=== PATIENT | male | born 1945 | race Caucasian/White ===

== ENCOUNTER → 2018-05-26 12:53 | Outpatient (CLI) | payer MEDICARE, SELFPAY ==
[2018-05-26 13:17] LABS: AST(SGOT) 27 U/L (15-37); Alanine Aminotransfer ALT/SGPT 42 U/L (16-61); Albumin, Serum 3.6 g/dL (3.2-5.0); Alkaline Phosphatase 78 U/L (45-117); Anion Gap 6 (5-15); BUN 24 mg/dL (7-18); BUN/Creat Ratio 26.2 RATIO (10-20); Calcium,Total 8.9 mg/dL (8.5-10.1); Chloride 106 mmol/L (98-107); Cholesterol 175 mg/dL (200); Creatinine, Serum 0.92 mg/dL (0.70-1.30); EST Glomerular Filtration Rate 87 mL/min (>60); Est Glom Filt Rate - Afr Amer 105 mL/min (>60); Globulin 3.5 g/dL (2.2-4.2); Glucose 89 mg/dL (74-106); High Density Lipoprotein 60 mg/dL; Potassium 4.2 mmol/L (3.5-5.1); Protein, Total 7.1 g/dL (6.4-8.2); Sodium Level 141 mmol/L (136-145); Triglycerides 80 mg/dL; Very Low Density Lipoprotein 16 mg/dL (5-40)
== END ==
PROVIDERS: Family Provider Family Medicine; PCP Family Medicine; Visit Provider Family Medicine
DX: I10 Essential (primary) hypertension (principal); E78.5 Hyperlipidemia, unspecified; R73.09 Other abnormal glucose
CPT/HCPCS: 80053; 80061; 83036

== ENCOUNTER 2018-11-12 07:45 | Day surgery (SDC) | payer MEDICARE, SELFPAY ==
--- NOTE | 2018-11-06 09:36 | EKG12_ITS ---
Test Reason : PRE-OP Blood Pressure : / mmHG Vent. Rate : 078 BPM Atrial Rate : 078 BPM P-R Int : 192 ms QRS Dur : 106 ms QT Int : 364 ms P-R-T Axes : 036 007 024 degrees QTc Int : 414 ms Normal sinus rhythm Inferior infarct , age undetermined Abnormal ECG Confirmed by ISELA MCDANIELS, MIKE ([id number]), acquisitions editor KAMILLE BLANCA ([id number]) on 11/09/2018 7:36:07 AM Referred By: Arnoldo Erazo Confirmed By:MIKE WEISS MD
[2018-11-06 10:02] LABS: Hematocrit 45.1 % (40-54); Hemoglobin 15.6 g/dl (13.0-16.5); Mean Corp Hgb Conc 34.6 g/gl (32-36); Mean Corpuscular Hgb 33.6 pg (27.0-32.0); Mean Corpuscular Volume 97.2 fL (80-94); Mean Platelet Vol. 9.4 fl (6.2-12.0); Platelet Count 235 K/mm3 (150-450); RBC Distribution Width CV 12.7 % (11.6-14.6); RBC Distribution Width SD 44.9 fl (35.1-43.9); Red Blood Count 4.64 M/mm3 (4.6-6.2); White Blood Count 6.5 K/mm3 (4.4-11.0)
[2018-11-06 10:03] LABS: Scan Indicated on CBC? Y/N NO
[2018-11-06 10:55] LABS: Anion Gap 10 (5-15); BUN 20 mg/dL (7-18); BUN/Creat Ratio 19.2 RATIO (10-20); Calcium,Total 9.2 mg/dL (8.5-10.1); Chloride 105 mmol/L (98-107); Creatinine, Serum 1.04 mg/dL (0.70-1.30); EST Glomerular Filtration Rate 75 mL/min (>60); Est Glom Filt Rate - Afr Amer 90 mL/min (>60); Glucose 102 mg/dL (74-106); Potassium 3.8 mmol/L (3.5-5.1); Sodium Level 141 mmol/L (136-145)
[2018-11-12 08:14] VITALS: BP 137/84; PULSE 85; RESP 18; TEMP 36.6; O2SAT 93; BMI 36.5
[2018-11-12] MEDS: Cefazolin 2 GM in 0.9% Normal Saline 100 ML IV (09:03)
[2018-11-12] MEDS: Bupiv/Epi 0.5% Mpf 30 ML Vial (09:39)
--- NOTE | 2018-11-12 09:54 | PCM.IMDPSTOP ---
Immediate Post-Op Note Date of Procedure: 11/12/18 Primary Surgeon/Physician: Arnoldo Erazo, DO obstetrics nurse practitioner: none Pre-Operative Diagnosis: Internal derangement left knee Post-Operative Diagnosis: MMT, LMT, Grade 3 chondromalacia MFC, Grade 3 and 4 chondromalacia LFC, Grade 3 chondromalacia PFJ Surgery/Procedure Performed:: Diagnostic and Operaative arthroscopy left knee Description of Surgical Findings:: see op note Estimated Blood Loss: minimal Specimen's removed: none Type of Anesthesia:: General ASA Class: ASA3 Severe Disease - Admit VTE Documentation VTE Present on Admission: No VTE Mechan Device Prophylaxis: SCD's, Thigh High RADHA Hose VTE Pharm Prophylaxis ordered?: No Reason prophylaxis not ordered:: Treatment Not Indicated
--- NOTE | 2018-11-12 09:58 | OP.PN_ITS ---
Immediate Post-Op Note Date of Procedure: 11/12/18 Primary Surgeon/Physician: Arnoldo Erazo, DO agency sales director: none Pre-Operative Diagnosis: Internal derangement left knee Post-Operative Diagnosis: MMT, LMT, Grade 3 chondromalacia MFC, Grade 3 and 4 chondromalacia LFC, Grade 3 chondromalacia PFJ Surgery/Procedure Performed:: Diagnostic and Operaative arthroscopy left knee Description of Surgical Findings:: see op note Estimated Blood Loss: minimal Specimen's removed: none Type of Anesthesia:: General ASA Class: ASA3 Severe Disease - Admit VTE Documentation VTE Present on Admission: No VTE Mechan Device Prophylaxis: SCD's, Thigh High RADHA Hose VTE Pharm Prophylaxis ordered?: No Reason prophylaxis not ordered:: Treatment Not Indicated
[2018-11-12 10:02] VITALS: BP 137/84; BP 151/76; PULSE 82; RESP 16; TEMP 36.6; O2SAT 97
--- NOTE | 2018-11-12 10:11 | OP.PCM_ITS ---
Operative Report Date of Procedure: 11/12/18 Primary Surgeon/Physician: Arnoldo Erazo corporate controller: none corporate controller: Pre-Operative Diagnosis: Medial and Lateral meniscus tears and OA left knee Post-Operative Diagnosis: same Surgery/Procedure Performed: Diagnostic and Operative arthroscopy with partial medial and lateral meniscectomies and chondroplasties of the MFC, LFC and PFJ Estimated Blood Loss: minimal Specimen's Removed: none Type of Anesthesia: general ASA Class: 3 Indications: [ ] Patient has failed conservative measures and at this point has elected to undergo the above procedure. Procedure Description: The patient was greeted in the preoperative area. The [left ] knee was marked with surgical marker. Preoperative antibiotics were administered. The patient was then taken to the operating suite and placed in a supine position on operating room table. After adequate anesthesia was obtained and airway was secured a well-padded tourniquet was placed on patient's affected extremity. Leg was then prepped and draped in usual sterile fashion. Surgical timeout was performed and confirmed with all present and surgery was commenced. Standard anteromedial anterolateral portals were made and a 30? arthroscope was then inserted into the knee. [ ]. The patellofemoral joint showed diffuse grade 2 bordering on grade 3 chondromalacia of the patella and trochlear groove. The lateral femoral condyle close to the patellofemoral joint displayed grade 4 chondromalacia. The medial compartment was entered. There was noted to be a macerated, multilayered tear of the medial meniscus with associated grade 3 chondromalacia, The ACL and PCL were probed and intact. The lateral compartment showed an inner 1/3 tear of the lateral meniscus with associated grade 3 chondromalacia. A combination of straight and angled punches were used to perform a partial medial meniscectomy. The meniscal fragments were removed with a shaver and the remainder of the meniscus was smoothed to a firm and stable rim. The shaver was then used to perform a chondroplasty on the medial femoral condyle. The lateral compartment was entered and similarly a partial lateral meniscectomy and chondroplasty were performed. A chondroplasty was then performed on the patellofemoral joint. At this point all instruments were removed. Arthroscopic portals were closed in a standard fashion. 30 cc of 0.5% Marcaine was then injected into the knee. Well-padded nonadherent dressing was applied and secured with an Tanner wrap. Tourniquet was deflated and patient was taken to the recovery room in stable condition.
[2018-11-12 10:15] VITALS: BP 137/84; BP 150/72; PULSE 78; RESP 16; O2SAT 95
[2018-11-12 10:29] VITALS: BP 134/79; BP 137/84; PULSE 74; RESP 16; TEMP 36.8; O2SAT 97
[2018-11-12] MEDS: HYDROcodone Bitartrate/Apap 5/325 Tablet PO (10:40)
[2018-11-12 11:30] VITALS: BP 137/84
== END 2018-11-12 11:30 | disposition home or self-care (01) ==
LOC: SDC 07:46 → AC 07:48
PROVIDERS: Physician Assistant; Family Provider Family Medicine; PCP Family Medicine; Referring Provider Orthopaedic Surgery; Visit Provider Orthopaedic Surgery
PROC: (CPT 29870; principal; 2018-11-12 08:55)
DX: M17.12 Unilateral primary osteoarthritis, left knee (principal); S83.282A Other tear of lateral meniscus, current injury, left knee, initial encounter; S83.242A Other tear of medial meniscus, current injury, left knee, initial encounter; I10 Essential (primary) hypertension; E78.00 Pure hypercholesterolemia, unspecified; Z86.73 Personal history of transient ischemic attack (TIA), and cerebral infarction without residual deficits; X58.XXXA Exposure to other specified factors, initial encounter; Z79.891 Long term (current) use of opiate analgesic; Z79.899 Other long term (current) drug therapy; Y93.89 Activity, other specified; Y92.89 Other specified places as the place of occurrence of the external cause; Y99.8 Other external cause status
CPT/HCPCS: 01400; 29880; 36415; 80048; 85027; 93005; J7120; J2405

== ENCOUNTER → 2018-12-01 12:02 | Outpatient (CLI) | payer MEDICARE, SELFPAY ==
[2018-11-12 08:14] VITALS: BMI 36.5
[2018-12-01 13:03] LABS: ALB/GLOB Ratio 1.1 RATIO (0.9-2.4); AST(SGOT) 20 U/L (15-37); Alanine Aminotransfer ALT/SGPT 36 U/L (16-61); Albumin, Serum 3.8 g/dL (3.2-5.0); Alkaline Phosphatase 68 U/L (45-117); Anion Gap 8 (5-15); BUN 24 mg/dL (7-18); Calcium,Total 8.7 mg/dL (8.5-10.1); Chloride 105 mmol/L (98-107); Cholesterol 186 mg/dL (200); Creatinine, Serum 0.92 mg/dL (0.70-1.30); EST Glomerular Filtration Rate 86 mL/min (>60); Est Glom Filt Rate - Afr Amer 104 mL/min (>60); Globulin 3.5 g/dL (2.2-4.2); Glucose 97 mg/dL (74-106); High Density Lipoprotein 57 mg/dL; Protein, Total 7.3 g/dL (6.4-8.2); Sodium Level 140 mmol/L (136-145); Triglycerides 98 mg/dL; Very Low Density Lipoprotein 20 mg/dL (5-40)
[2018-12-01 13:07] LABS: Hemoglobin A1c 5.5 % (4.2-6.3)
[2018-12-01 13:26] LABS: Microalbumin,Random Urine 9.8 mg/L (NO RANGE EST.); Microalbumin:Creatinine Ratio 4.4 mg/g CRE (<30 mg/g CRE)
== END ==
PROVIDERS: Family Provider Family Medicine; PCP Family Medicine; Referring Provider Family Medicine; Visit Provider Family Medicine
DX: E78.5 Hyperlipidemia, unspecified (principal); Z79.899 Other long term (current) drug therapy
CPT/HCPCS: 80053; 80061; 82043; 82570; 83036

== ENCOUNTER → 2019-05-31 | Outpatient (CLI) | payer MEDICARE, SELFPAY ==
[2019-05-31 10:47] LABS: AST(SGOT) 22 U/L (15-37); Alanine Aminotransfer ALT/SGPT 31 U/L (16-61); Albumin, Serum 3.6 g/dL (3.2-5.0); Alkaline Phosphatase 82 U/L (45-117); Anion Gap 2 (5-15); BUN 25 mg/dL (7-18); Calcium,Total 8.9 mg/dL (8.5-10.1); Chloride 105 mmol/L (98-107); Cholesterol 184 mg/dL (200); Creatinine, Serum 0.83 mg/dL (0.70-1.30); EST Glomerular Filtration Rate 96 mL/min (>60); Est Glom Filt Rate - Afr Amer 117 mL/min (>60); Globulin 3.5 g/dL (2.2-4.2); Glucose 101 mg/dL (74-106); High Density Lipoprotein 75 mg/dL; Potassium 4.1 mmol/L (3.5-5.1); Protein, Total 7.1 g/dL (6.4-8.2); Sodium Level 137 mmol/L (136-145); Triglycerides 92 mg/dL; Very Low Density Lipoprotein 18 mg/dL (5-40)
== END | disposition home or self-care (01) ==
LOC: LABSPEC 10:24
PROVIDERS: Family Provider Family Medicine; PCP Family Medicine; Referring Provider Family Medicine; Visit Provider Family Medicine
DX: E78.5 Hyperlipidemia, unspecified (principal)
CPT/HCPCS: 80053; 80061

== ENCOUNTER → 2019-11-29 13:21 | Outpatient (CLI) | payer MEDICARE, SELFPAY ==
[2019-11-29 14:39] LABS: ALB/GLOB Ratio 0.9 RATIO (0.9-2.4); AST(SGOT) 20 U/L (15-37); Alanine Aminotransfer ALT/SGPT 31 U/L (16-61); Albumin, Serum 3.5 g/dL (3.2-5.0); Alkaline Phosphatase 72 U/L (45-117); Anion Gap 2 (5-15); BUN 20 mg/dL (7-18); BUN/Creat Ratio 22.3 RATIO (10-20); Calcium,Total 8.8 mg/dL (8.5-10.1); Chloride 105 mmol/L (98-107); Cholesterol 185 mg/dL (200); EST Glomerular Filtration Rate 88 mL/min (>60); Est Glom Filt Rate - Afr Amer 107 mL/min (>60); Globulin 3.7 g/dL (2.2-4.2); Glucose 83 mg/dL (74-106); High Density Lipoprotein 60 mg/dL; Potassium 4.1 mmol/L (3.5-5.1); Protein, Total 7.2 g/dL (6.4-8.2); Sodium Level 138 mmol/L (136-145); Triglycerides 68 mg/dL; Very Low Density Lipoprotein 14 mg/dL (5-40)
== END ==
PROVIDERS: Family Provider Family Medicine; PCP Family Medicine; Referring Provider Family Medicine; Visit Provider Family Medicine
DX: I10 Essential (primary) hypertension (principal); R73.09 Other abnormal glucose; E78.5 Hyperlipidemia, unspecified
CPT/HCPCS: 80053; 80061

== ENCOUNTER 2020-05-31 05:08 | Inpatient (IN) | payer MEDICARE, SELFPAY ==
[2020-05-31] VITALS (7 sets, daily range): BP systolic 128–174; BP diastolic 75–85; PULSE 62–92; RESP 14–19; TEMP 36.4–37.1; O2SAT 92–99; BMI 29.9; BMI 32.8; BMI 32.9
--- NOTE | 2020-05-31 05:18 | CT_ITS ---
STUDY: CT BRAIN WITHOUT CONTRAST REASON FOR EXAM: Male, 75 years old. MEMORY LOSS,REPEATING THINGS,DOESN''T FEEL RIGHT -- HX:HLD,HTN,TRANSIENT GLOBAL AMNESIA-3 YRSAGO RADIATION DOSAGE (If Supplied By Facility): CTDIvol = ( 44.99 ) mGy, DLP = ( 846.73 ) mGycm TECHNIQUE: Transaxial CT imaging of the brain was performed without administration of intravenous contrast material. Individualized dose optimization techniques were used for this CT. COMPARISON: No relevant priors. FINDINGS: Normal soft tissue structures. Normal calvarium. There is mild cerebral atrophy with widening of the extra-axial spaces and ventricular dilatation. There are areas of decreased attenuation within the white matter tracts of the supratentorial brain, consistent with microvascular disease changes. There is a vague suggestion of low attenuation within the basal ganglia/thalamic regions which may represent prior ischemic change. Normal brainstem. There is mild cerebellar atrophy. There is no intracranial hemorrhage. There are no findings of an acute ischemic infarction. There is right greater than left chronic appearing maxillary sinusitis. There is ethmoid sinus mucosal thickening mild frontal sinusitis. Minimal sphenoid. CT/Brain/Head without Contrast IMPRESSION: Sinusitis. Atrophy no evidence of acute hemorrhage infarct or edema. Electronically Signed: Alessandra Persaud MD at 5:46 EDT Tel , Service support ,
--- NOTE | 2020-05-31 05:18 | EKG12_ITS ---
Test Reason : NEURO Blood Pressure : / mmHG Vent. Rate : 082 BPM Atrial Rate : 082 BPM P-R Int : 194 ms QRS Dur : 102 ms QT Int : 362 ms P-R-T Axes : 053 037 042 degrees QTc Int : 422 ms Normal sinus rhythm Normal ECG Confirmed by ISELA MCDANIELS, MIKE ([id number]), business editor EMANUEL MELARA ([id number]) on 06/01/2020 1:15:43 PM Referred By: SARAH Confirmed By:MIKE WEISS MD
--- NOTE | 2020-05-31 05:20 | ED.DCSUM_ITS ---
History of Present Illness Chief Complaint: Neuro S/Sx Informant: Patient, Family Onset: Today Narrative: Patient presents with this morning secondary to confusion and memory loss. Patient got up early this morning and states his memory was not right. He is repeatedly asking his questions. He denies pain. 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 Patient at that time also had slurred speech. Stroke work-up at that point was read as evidence of a stroke, but neurologist thought it was an overcall and there was no actual stroke. Patient has not had problems in the interval time period. 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 Past Medical History - Allergies and Home Meds Allergies/Adverse Reactions: Allergies No Known Allergies Allergy (Verified 05/31/20 05:19) Primary Care Physician: Demian Quintanilla MD [Primary Care Provider] - Prior records reviewed: Yes Surgical History: - - cataract Lives: Spouse/ Significant Other Smoking Status: Never smoker - Family History Paternal Family History: Reports: - Review of Systems General: Denies: Chills, Fever Eyes: Denies: Visual changes - bilaterally ENT: Denies: Bilateral ear pain Cardiovascular: Denies: Chest pain Respiratory: Denies: Dyspnea, Cough Gastrointestinal: Denies: Abdominal pain, Nausea, Vomiting, Diarrhea Musculoskeletal: Denies: Extremity Pain Skin: Denies: Rash Neurological: Denies: Headache, Weakness, Parasthesia Endocrine: Reports: Polydipsia Hematologic: Denies: Easy bruising, Easy bleeding Allergy: Denies: Uticaria Physical Exam Vital Signs/Narrative: Vital Signs Temp Pulse Resp BP Pulse Ox 05/31/20 05:10 97.6 F L 92 15 168/79 H 97 Inital Vital Signs reviewed: Yes General: Well nourished, Well developed Head: Normocephalic Eyes: Perrl, EOMI ENT: Moist mucous membranes Neck: Supple Cardiovascular: Regular rate, Regular rhythm Respiratory: No distress, CTA bilaterally Abdomen: Soft, Nontender Extremities: Nontender Skin: Normal color Neurological: Alert, Oriented x3, Normal Strength, Normal Sensation, - - NIH equals 0 Psychological: Normal affect Diagnostic/Tx/Re-eval Impressions Brain CT 07/08/20 05:18 IMPRESSION: Sinusitis. Atrophy no evidence of acute hemorrhage infarct or edema. Electronically Signed: Alessandra Persaud MD at 5:46 EDT Tel , Service support , 05/31/20 05:18 Brain/Head without Contrast [CT] Stat Laboratory Results 05/31/20 05/31/20 05/31/20 05:15 05:15 05:15 WBC 6.1 RBC 4.41 L Hgb 14.6 Hct 44.1 MCV 100.0 H MCH 33.1 H MCHC 33.1 RDW Std Deviation 45.9 H RDW Coeff of Nilo 12.3 Plt Count 213 MPV 9.1 Immature Gran % (Auto) 0.200 Neut % (Auto) 42.2 L Lymph % (Auto) 42.6 H [place] % (Auto) 8.4 Eos % (Auto) 5.9 H Baso % (Auto) 0.7 Absolute Neuts (auto) 2.6 Absolute Lymphs (auto) 2.58 Nucleated RBC % 0 PT 11.7 INR 0.9 APTT 28.4 Sodium 139 Potassium 3.6 Chloride 102 Carbon Dioxide 28.0 Anion Gap 9 BUN 19 H Creatinine 0.88 Estim Creat Clear Calc 79.63 Est GFR (MDRD) Af Amer 109 Est GFR (MDRD) Non-Af 90 BUN/Creatinine Ratio 21.5 H Glucose 113 H Calcium 8.9 Total Bilirubin 0.40 Direct Bilirubin 0.10 AST 22 ALT 33 Alkaline Phosphatase 92 Troponin I < 0.015 Total Protein 7.6 Albumin 3.8 Globulin 3.8 POC Glucose 05/31/20 05:18 WBC RBC Hgb Hct MCV MCH MCHC RDW Std Deviation RDW Coeff of Nilo Plt Count MPV Immature Gran % (Auto) Neut % (Auto) Lymph % (Auto) [place] % (Auto) Eos % (Auto) Baso % (Auto) Absolute Neuts (auto) Absolute Lymphs (auto) Nucleated RBC % PT INR APTT Sodium Potassium Chloride Carbon Dioxide Anion Gap BUN Creatinine Estim Creat Clear Calc Est GFR (MDRD) Af Amer Est GFR (MDRD) Non-Af BUN/Creatinine Ratio Glucose Calcium Total Bilirubin Direct Bilirubin AST ALT Alkaline Phosphatase Troponin I Total Protein Albumin Globulin POC Glucose 109 - EKG Initial EKG Interpretation: Sinus Rhythm - Sinus at 82 with no acute ischemia. - Medical Decision Making Test results are discussed with patient and at bedside. At this time his NIH score is technically 0. He does continue to perseverate and ask repeated questions. He does have insight to understand that something is not right. I have recommended observation for evaluation by neurology and further work-up. Family is aware that we do not have in-house neurology and this will be a virtual consult. I will speak with the hospitalist. ED Disposition - Plan for ED Patient: Disposition: Acute Care Hospital [facility] Diagnosis: Confusion, Amnesia Referrals: Demian Quintanilla MD [Primary Care Provider] -
[2020-05-31 05:25] LABS: Absolute Lymphocyte Count 2.58 X10^3/uL (0.83-4.51); Absolute Neutrophil Count 2.6 X10^3/uL (2.0-7.7); Basophil# 0.04 X10^3/uL; Basophil% 0.7 % (0-1); Eosinophil# 0.36 X10^3/uL; Eosinophils% 5.9 % (0-5); Hematocrit 44.1 % (40-54); Hemoglobin 14.6 g/dL (13.0-16.5); Lymphocyte # 2.58 X10^3/ul (4.0); Lymphocyte % 42.6 % (19-41); Mean Corp Hgb Conc 33.1 g/dL (32-36); Mean Corpuscular Hgb 33.1 pg (27.0-32.0); Mean Platelet Vol. 9.1 fl (6.2-12.0); Monocyte# 0.51 X10^3/uL; Monocyte% 8.4 % (0-10); NRBC Flagged by Analyzer 0 % (0-5); Neutrophil # 2.56 X10^3/uL (2.7-7.7); Neutrophil % 42.2 % (47-70); Platelet Count 213 K/mm3 (150-450); RBC Distribution Width CV 12.3 % (11.6-14.6); RBC Distribution Width SD 45.9 fl (35.1-43.9); Red Blood Count 4.41 M/mm3 (4.6-6.2); White Blood Count 6.1 K/mm3 (4.4-11.0)
[2020-05-31 05:26] LABS: Bedside Glucose 109 mg/dL (70-110)
[2020-05-31 05:32] LABS: International Normalized Ratio 0.9; Prothrombin Time (Protime)PT. 11.7 SECONDS (11.7-14.9)
[2020-05-31 05:33] LABS: Partial Thromboplast Time 28.4 Seconds (24.1-36.2)
[2020-05-31] MEDS: 0.9% Normal Saline 1,000 ML 150 ML IV (05:35)
[2020-05-31 05:43] LABS: AST(SGOT) 22 U/L (15-37); Alanine Aminotransfer ALT/SGPT 33 U/L (16-61); Albumin, Serum 3.8 g/dL (3.2-5.0); Alkaline Phosphatase 92 U/L (45-117); Anion Gap 9 (5-15); BUN 19 mg/dL (7-18); BUN/Creat Ratio 21.5 RATIO (10-20); Calcium,Total 8.9 mg/dL (8.5-10.1); Chloride 102 mmol/L (98-107); Creatinine, Serum 0.88 mg/dL (0.70-1.30); EST Glomerular Filtration Rate 90 mL/min (>60); Est Glom Filt Rate - Afr Amer 109 mL/min (>60); Estimated Creatinine Clearance 79.63 ml/min; Globulin 3.8 g/dL (2.2-4.2); Glucose 113 mg/dL (74-106); Potassium 3.6 mmol/L (3.5-5.1); Protein, Total 7.6 g/dL (6.4-8.2); Sodium Level 139 mmol/L (136-145)
--- NOTE | 2020-05-31 06:13 | PCM.HP.STD ---
Problem List (1) TIA (transient ischemic attack) Status: Acute (2) HTN (hypertension) Status: Chronic Qualifiers: Hypertension type: essential hypertension Qualified Code(s): I10 - Essential (primary) hypertension (3) Hyperlipemia Status: Chronic Qualifiers: Hyperlipidemia type: unspecified Qualified Code(s): E78.5 - Hyperlipidemia, unspecified History of Present Illness Date of Admission: 05/31/20 Chief Complaint: Confusion, word finding difficulty, perservering - 1 day The patient is a 75 year old M with past medical history of hypertension, hyperlipidemia, previous CVA who was last known normal around 10 pm when he went to bed last night. He woke up around 4:40 AM and got out of bed and open the door to the bedroom and closed it. He repeated that again. He appeared confused and had difficulty finding words as well as asking what happened the day before, where is the dog, etc. She had a similar presentation 3 years ago where he had transient global amnesia with slurred speech. He was initially said to be a stroke but later on the neurologist said there was no actual stroke. At the time of being seen, patient admits to feeling better. His confusion appears to be clearing up. Vitals in the ED show temperature of 97.6F, heart rate 92, blood pressure 168/79, respiratory rate 15, SPO2 97% on room air. WBC count is 6.1, hemoglobin 14.6, platelet count 213, INR 0.9, APTT 28.4, CMP was unremarkable. CT scan of the brain showed atrophy without any acute abnormality. Past Medical History Past Medical History (Chronic Problems): Chronic Problems TGA (transient global amnesia) (Chronic) HTN (hypertension) (Chronic) Hyperlipemia (Chronic) Allergies No Known Allergies Allergy (Verified 05/31/20 05:19) Home Medications: Ambulatory Orders Medication Instructions Recorded Aspirin [Aspirin, Baby] 81 mg PO DAILY@0800 02/13/17 Lisinopril/Hydrochlorothiazide 1 tablet PO DAILY 02/13/17 [Zestoretic Tablet] Multivitamins,Ther W-Minerals 1 tablet PO DAILY 02/13/17 [Multivitamin With Minerals ([facility])] Acetaminophen [Tylenol Tablet] 650 mg PO Q4H PRN PRN #0 tablet 02/14/17 Lovastatin [Mevacor] 40 mg PO DAILY 11/06/18 Surgical History: cataract Psychiatric History: No pertinent psych hx Lives: Spouse/ Significant Other Smoking Status: Never smoker Tobacco Use: Non-smoker Alcohol: Occasional Drugs: None - *Family History Paternal History Items: Cancer Maternal History Items: Cancer Review of Systems Constitutional: Denies: Anorexia, Chills, Fever, Malaise, Weakness, Weight Change, Fatigue Eyes: Denies: Blurred vision, Cataracts, Conjunctivae Inflammation, Pain, Redness, Vision Change HEENT: Denies: Difficulty Hearing, Difficulty Swallowing, Head Aches, Hearing Changes, Sinus Congestion, Sinus Drainage Cardiovascular: Denies: Chest Pain, Claudication, Orthopnea, Palpitations Respiratory: Denies: Cough, Hemoptysis, Shortness of breath at rest, Shortness of breath upon exertion, Sputum production Gastrointestinal: Denies: Abdominal Pain, Constipation, Hematemesis, Hematochezia, Nausea, Vomiting Genitourinary: Denies: Dysuria, Frequency Musculoskeletal: Denies: Joint Pain, Joint stiffness, Joint Tenderness Skin: Denies: Rash, Wounds Neurological: Denies: Numbness, Tingling, Focal weakness Psychiatric: Denies: Anxiety, Depression, Homicidal Ideations, Suicidal Ideations Hematologic/ Lymphatic: Denies: Easy Bruising, Easy Bleeding VTE Information - Inpt Only VTE Present on Admission: No VTE Pharm Prophylaxis ordered?: Yes Patient Problems: Active and Suspected Problems Confusion (Acute) Amnesia (Acute) TIA (transient ischemic attack) (Acute) - Physical Exam Vitals/I&O's: Vital Signs Temp Pulse Resp BP Pulse Ox 97.6 F L 92 15 168/79 H 97 05/31/20 05:10 05/31/20 05:10 05/31/20 05:10 05/31/20 05:10 05/31/20 05:10 Oxygen Delivery Method Room Air Weight: 97.6 kg Body Mass Index (BMI) 29.9 Finger Stick Blood Glucose 109 General: Alert, Oriented x3, Cooperative, No apparent distress HEENT: Atraumatic, PERRLA, EOMI, Normocephalic Oral: Moist Mucosa Neck: Supple Lungs: Clear to auscultation, Normal air movement Cardiovascular: Regular rate, Regular Rhythm, Normal S1, Normal S2, No murmurs Abdomen: Bowel Sounds Present, Soft, Non Tender, Non-Distended, No Hepato-splenomegaly Extremities: No edema Skin: No rashes, No breakdown Musculoskeletal: No Tenderness to Palpation of Joints or Extremities Lymphatic: No Cervical, Supraclavicular, or Inguinal Adenopathy Neurological: Cranial nerves II-XII grossly intact, Neuro grossly intact Psych/Mental Status: Normal Affect, Appropriate Laboratory Results 05/31/20 05:15: WBC 6.1, RBC 4.41 L, Hgb 14.6, Hct 44.1, MCV 100.0 H, MCH 33.1 H, MCHC 33.1, RDW Std Deviation 45.9 H, RDW Coeff of Nilo 12.3, Plt Count 213, MPV 9.1, Immature Gran % (Auto) 0.200, Neut % (Auto) 42.2 L, Lymph % (Auto) 42.6 H, [place] % (Auto) 8.4, Eos % (Auto) 5.9 H, Baso % (Auto) 0.7, Absolute Neuts (auto) 2.6, Absolute Lymphs (auto) 2.58, Nucleated RBC % 0 05/31/20 05:15: PT 11.7, INR 0.9, APTT 28.4 05/31/20 05:15: Sodium 139, Potassium 3.6, Chloride 102, Carbon Dioxide 28.0, Anion Gap 9, BUN 19 H, Creatinine 0.88, Estim Creat Clear Calc 79.63, Est GFR (MDRD) Af Amer 109, Est GFR (MDRD) Non-Af 90, BUN/Creatinine Ratio 21.5 H, Glucose 113 H, Calcium 8.9, Total Bilirubin 0.40, Direct Bilirubin 0.10, AST 22, ALT 33, Alkaline Phosphatase 92, Troponin I < 0.015, Total Protein 7.6, Albumin 3.8, Globulin 3.8 05/31/20 05:18: POC Glucose 109 Current Medications Sodium Chloride () 1,000 mls @ 150 mls/hr IV .Q6H40M [facility] Last Admin: 05/31/20 05:35 Dose: 150 mls/hr Documented by: Assessment/Plan All Active Problems Confusion (Acute) Amnesia (Acute) TIA (transient ischemic attack) (Acute) 1. Acute confusion, word-finding difficulty likely related to acute TIA/stroke Patient's NIHSS at time of being examined is [address] scan of the brain shows atrophy, no acute intracranial abnormality Will admit for stroke work-up -MRI of the brain, MRA of the head, carotid ultrasound (unable to order MRA neck as system does not seem to allow entry) 2D echo, lipid profile, HbA1c 2. Hypertension, admitting blood pressures elevated Will hold home medication for now and allow for permissive hypertension We will resume home blood pressure medication if there is no stroke 3. Hyperlipidemia, on statin, lipid profile in the a.m. 4. DVT PPx- Heparin SC OBSV E&M: 18264 Initial observation care L3
--- NOTE | 2020-05-31 07:21 | MRI_ITS ---
STUDY: MRA OF THE HEAD WITHOUT CONTRAST REASON FOR EXAM: Male, 75 years old. neuro deficit, memory loss, amnesia,confusion TECHNIQUE: 3-D [id number] (TOF) imaging was performed with MIPs. The study was performed unenhanced. COMPARISON: None. FINDINGS: Normal bilateral petrous carotid arteries. Normal right cavernous carotid artery with a normal supraclinoid bifurcation. Normal left cavernous carotid artery with a normal supraclinoid bifurcation. There is hypoplastic development of the right A1 segment of the anterior cerebral arteries with an atretic but intact artery. Normal left A1 segments of the anterior cerebral artery. Normal intact anterior communicating artery (ACOM). Normal bilateral A2 segments of the anterior cerebral arteries. Normal right M1 and M2 segments of the middle cerebral arteries, with a normal M1 bifurcation. Normal left M1 and M2 segments of the middle cerebral arteries, with a normal M1 bifurcation. Normal right posterior communicating artery (PCOM). Normal left posterior communicating artery (PCOM). Normal bilateral vertebral arteries. Normal basilar artery with a normal basilar bifurcation. The visualized bilateral superior cerebellar (SCA) arteries are normal. Normal bilateral P1, P2 and visualized P3 segments of the posterior cerebral arteries. There is no demonstrated aneurysm of the [place]. There is no major vessel occlusion or hemodynamically significant stenosis. There is no demonstrated abnormality of the visualized brain. MRI/MRA Head ONLY without Contrast IMPRESSION: Normal MRA of the head Electronically Signed: Aries Raman MD at 12:35 EDT Tel , Service support ,
--- NOTE | 2020-05-31 07:21 | MRI_ITS ---
STUDY: MRI BRAIN WITHOUT CONTRAST REASON FOR EXAM: Male, 75 years old. neuro deficit, memory loss, amnesia,confurion TECHNIQUE: Standardized multiplanar fat and water weighted pulse sequences were obtained. COMPARISON: 02/13/2017 FINDINGS: There is mild cerebral atrophy with widening of the extra-axial spaces and ventricular dilatation. There are a limited number of small white matter hyperintensities, distributed throughout the deep white matter tracts of the cerebral hemispheres, consistent with mild chronic white matter ischemic changes. There is no evidence for recent intracranial ischemia or other cause of cytotoxic edema on diffusion weighted imaging (DWI). Normal T2* images of the brain without demonstrated susceptibility artifact. There is no demonstrated hemosiderin stain. Normal bilateral basal ganglia. Normal thalami. There is no extra-axial fluid accumulation. Normal flow voids within the major intracranial circulation suggesting patency by spin echo criteria. Normal sella turcica, pituitary gland, infundibular stalk, optic chiasm and hypothalamus. Normal tectal plate and pineal gland. Normal midbrain, altagracia and medulla. Normal cerebellum. Normal basal cisterns. Normal bilateral temporal bones. Normal bilateral internal auditory canals. There are bilateral ocular lens implants with otherwise normal intraorbital contents. There is mucoperiosteal inflammatory disease of the paranasal sinuses consistent with moderate chronic sinusitis. Normal calvarium and skull base. Normal visualized soft tissue structures. Normal visualized upper cervical spine. MRI/Brain without Contrast IMPRESSION: Involutional changes of the brain, as described above. No acute infarct. Electronically Signed: Aries Raman MD at 12:28 EDT Tel , Service support ,
--- NOTE | 2020-05-31 07:21 | ECHOD_ITS ---
Reason For Study: TIA/CVA Procedure This was a 2D Doppler, Color Flow transthoracic echocardiogram. Exam performed portable in patient room. Left Ventricle Normal size and thickness. The estimated ejection fraction is 65 %. Stage 1 diastolic dysfunction. No regional wall motion abnormalities noted. Right Ventricle Moderately dilated right ventricle. Normal systolic function. Atria Normal left atrium. Normal right atrium. Normal atrial septum. Bubble contrast study negative for right to left interatrial shunt. Mitral Valve The mitral valve is structurally normal. No prolapse or stenosis seen. Tricuspid Valve Normal tricuspid valve. Mild (1+) tricuspid valve insufficiency. Right ventricular systolic pressure estimated to be 37 mmHg. Mild pulmonary hypertension. Aortic Valve Trisinus/trileaflet aortic valve. Mild focal aortic valve thickening. There is no aortic stenosis. Pulmonic Valve Normal pulmonic valve. Great Vessels Normal aortic root. Normal arch. Normal inferior vena cava. Inferior vena cava collapse with sniff. Pericardium/Pleural No pericardial effusion. Medication Performed a rapid injection of agitated mix of 9 cc saline and 1cc air to assess for atrial septal defect. MMode/2D Measurements & Calculations LVIDd: 5.2 cm IVSd: 0.97 cm Ao root diam: 4.1 cm LVIDs: 3.4 cm LVPWd: 0.90 cm RVDd: 4.5 cm FS: 33.8 % LAV(MOD-bp): 44.9 ml LVAd ap4: 37.4 cm2 SV(MOD-sp4): 76.5 ml LAV(MOD-bp) Indexed: 20.6 ml/m2 EDV(MOD-sp4): 128.6 ml LAV(MOD-sp2): 50.4 ml EDV(sp4-el): 131.9 ml LAV(MOD-sp4): 39.7 ml LVAs ap4: 19.8 cm2 ESV(MOD-sp4): 52.1 ml ESV(sp4-el): 50.2 ml EF(MOD-sp4): 59.5 % EF(sp4-el): 62.0 % SV(sp4-el): 81.8 ml LA A4 area: 15.8 cm2 LA dimension(2D): 4.9 cm RA A4 area: 11.9 cm2 Time Measurements MV dec time: 0.19 sec Doppler Measurements & Calculations MV E max mj: 76.5 cm/sec Lat Peak E' Mj: 12.8 cm/sec Med Peak E' Mj: 6.7 cm/sec MV A max mj: 97.1 cm/sec E/E' lat: 6.0 E/E' med: 11.4 MV E/A: 0.79 Ao V2 max: 211.7 cm/sec LV V1 max: 107.5 cm/sec PA V2 max: 117.3 cm/sec Ao max P.9 mmHg LV V1 max P.6 mmHg Ao V2 mean: 143.5 cm/sec LV V1 mean P.7 mmHg Ao mean P.3 mmHg LV V1 mean: 78.1 cm/sec Ao V2 VTI: 41.2 cm LV V1 VTI: 22.0 cm TR max mj: 283.9 cm/sec TR max P.2 mmHg Interpretation Summary The estimated ejection fraction is 65 %. Stage 1 diastolic dysfunction. Moderately dilated right ventricle. Bubble contrast study negative for right to left interatrial shunt. Mild (1+) tricuspid valve insufficiency. Right ventricular systolic pressure estimated to be 37 mmHg. Mild pulmonary hypertension. There is no aortic stenosis. Compared to echo report dated 02/14/2017, LV function has remained the same and RV has increased from mild to moderate dilatation, RVSP is increased from 23 to 37 mmHg. Ordering Physician: Shirley Guaman Referring Physician: MINA CARRILLO Performed By: Brooke Castrejon, MARISOL, RVT
[2020-05-31 07:51] LABS: AST(SGOT) 21 U/L (15-37); Alanine Aminotransfer ALT/SGPT 31 U/L (16-61); Albumin, Serum 3.8 g/dL (3.2-5.0); Alkaline Phosphatase 93 U/L (45-117); Bilirubin, Direct 0.13 mg/dL (0.00-0.30); Globulin 3.7 g/dL (2.2-4.2); Protein, Total 7.5 g/dL (6.4-8.2); Thyroid Stim Hormone (TSH) 4.47 uIU/mL (0.358-3.74)
--- NOTE | 2020-05-31 08:01 | MRI_ITS ---
STUDY: MRA NECK WITHOUT CONTRAST REASON FOR EXAM: Male, 75 years old. neuro deficit, memory loss, amnesia,confusion TECHNIQUE: Source images were obtained, MIPs were performed. The study was performed unenhanced. COMPARISON: 02/13/2017 FINDINGS: RIGHT CAROTID ARTERIES: Normal right common carotid artery (CCA). There is moderate atherosclerotic plaque formation with moderate narrowing of the carotid bulb. There is moderate atherosclerotic plaque formation of the origin of the right internal carotid artery with an estimated stenosis of 50-69% stenosis. Normal visualized cervical portion of the right internal carotid artery. Normal origin of the right external carotid artery (ECA). LEFT CAROTID ARTERIES: Normal left common carotid artery (CCA). There is moderate atherosclerotic plaque formation with moderate narrowing of the carotid bulb. There is moderate atherosclerotic plaque formation of the origin of the left internal carotid artery with an estimated stenosis of 50-69% stenosis. Normal visualized cervical portion of the left internal carotid artery. Normal origin of the left external carotid artery (ECA). VERTEBRAL ARTERIES: Normal antegrade flow within the bilateral vertebral artery without a hemodynamically significant stenosis. MRI/MRA Neck without Contrast IMPRESSION: 1. Moderate (50%) right carotid stenosis. 2. Moderate (60%) stenosis left carotid stenosis. 3. Patent vertebral arteries bilaterally. Electronically Signed: Aries Raman MD at 12:37 EDT Tel , Service support ,
[2020-05-31] MEDS: LORazepam 2 MG/ML Syringe IV (09:06)
--- NOTE | 2020-05-31 10:39 | CASEMGMT ---
Pt is out of the dept for testing at this time. This RN CM will check back later to complete RN CM assessment. [place] RN CM
--- NOTE | 2020-05-31 11:21 | CASEMGMT ---
STEPHANI ESPINAL assessment: Face to Face with patient for initial transition planning/care coordination assessment. STEPHANI ESPINAL introduced self and role at [facility] [place], pt voices understanding and consents to assessment at this time. Pt is sitting up in bed in no distress at this time. Pt is A/Ox4 and answers questions appropriately at this time. Pt's is at bedside during assessment. Care providers, pharmacy, and demographics verified/updated at this time. Presentation: Awoke from sleeping stating he didn't feel right and pt kept repeating things over and over. Pt with hx of transient global amnesia. Admitting dx: TIA/CVA PCP: [facility] Specialists: Pt states no current specialists. Preferred Pharmacy: [facility] Insurance: [employer] Prescription Benefit: [employer] Living Will/HPOA: Pt states has LW/HPOA and is aware that they are not on file at [facility] [place] at this time. Pt states his , Bharati Rizzo, is HPOA. LNOK: Bharati Rizzo, ; Tamiko Longoria, daughter Living Arrangements: Pt states lives in 1 story home with with 2 steps in and states no concerns at home at this time. Pt states is independent with ADL's. Transportation: Pt states drives self and states no transportation concerns at this time. DME/HHC: Pt states has crutches at home but does not use and states no need for any further DME at this time. Pt states no hx of HHC or SNF in the past. Pt states no concerns with going home at time of discharge. Pt states is retired. Pt states does not smoke cigarettes but does drink 1-2 glasses wine every evening. Pt states no further concerns/needs at this time. CM to follow PT/OT evals and for any further discharge planning/needs. Advised pt to ask for CM if any further questions/concerns/needs arise, voices understanding. Pt Goal: Home Plan: Home [place] STEPHANI ESPINAL
[2020-05-31] MEDS: Lisinopril 20 MG Tablet PO (11:43)
[2020-05-31] MEDS: Heparin Injection (Vial) 5,000 UNIT/ML VIAL 5000 UNIT SC (11:43)
[2020-05-31] MEDS: hydroCHLOROthiazide 25 MG Tablet PO (11:43)
--- NOTE | 2020-05-31 14:49 | DCINST_ITS ---
- Discharge Diagnoses Current Active Problems: Current Active and Chronic Problems Confusion (Acute) Amnesia (Acute) TIA (transient ischemic attack) (Acute) You will use the following diet at home:: Cardiac Your food should be the consistency of: Regular Discharge Activity: Return to Normal Activity Weight Bearing Status: Full weight bearing Call your doctor if you observe: Shortness of breath, Dizziness, Fainting s pells, Chest pain, Increased palpitations (irregular heartbeat), Uncontrolled pain Additional Instructions: Restart taking baby aspirin every day with food. Allergies/Adverse Reactions: Allergies No Known Allergies Allergy (Verified 05/31/20 05:19) Medications to take at Discharge Aspirin [Aspirin, Baby] 81 mg PO DAILY@0800 02/13/17 Lisinopril/Hydrochlorothiazide [Zestoretic 20/25 Tablet] 1 tablet PO DAILY 02/13/17 Multivitamins,Ther W-Minerals [Multivitamin With Minerals (BKC)] 1 tablet PO DAILY 02/13/17 Acetaminophen [Tylenol Tablet] 650 mg PO Q4H PRN PRN #0 tablet 02/14/17 Lovastatin [Mevacor] 40 mg PO DAILY 11/06/18 Primary Care Physician: Demian Quintanilla MD [Primary Care Provider] - Please follow up with your Primary Care Physician in: 1 week. Test Results: Test results from this visit will be discussed in further detail at your follow- up appointment, if applicable.
--- NOTE | 2020-05-31 14:50 | DS.PCM_ITS ---
Discharge Date and Diagnosis Date of Admission: 05/31/20 Date of Discharge: 05/31/20 - Primary Discharge Diagnosis Acute Problems: Active Problems Confusion/amnesia, acute stroke ruled out, attributed to transient global amnesia. - Secondary Discharge Diagnosis Chronic Problems: Chronic Problems TGA (transient global amnesia) (Chronic) HTN (hypertension) (Chronic) Hyperlipemia (Chronic) Hospital Course and Treatment Imaging Results: 05/31/20 07:21 Echo Complete [ECHO] Routine Brain without Contrast [MRI] Routine MRA Head ONLY without Contrast [MRI] Routine 05/31/20 08:01 MRA Neck without Contrast [MRI] Urgent Clinical Impression(s) from Imaging Studies Brain CT 05/31/20 05:18 IMPRESSION: Sinusitis. Atrophy no evidence of acute hemorrhage infarct or edema. Electronically Signed: Alessandra Persaud MD at 5:46 EDT Tel , Service support , Brain MRI 05/31/20 07:21 IMPRESSION: Involutional changes of the brain, as described above. No acute infarct. Electronically Signed: Aries Raman MD at 12:28 EDT Tel , Service support , Head MRA 05/31/20 07:21 IMPRESSION: Normal MRA of the head Electronically Signed: Aries Raman MD at 12:35 EDT Tel , Service support , ADDENDUM: 05/31/20 1248 Neck MRA 05/31/20 08:01 IMPRESSION: 1. Moderate (50%) right carotid stenosis. 2. Moderate (60%) stenosis left carotid stenosis. 3. Patent vertebral arteries bilaterally. Electronically Signed: Aries Raman MD at 12:37 EDT Tel , Service support , Operations: None Procedures: 2-D Echocardiogram, EKG Summary of Care Provided: Patient seen and examined on the day of discharge and appeared to be stable to be discharged home. He was alert, oriented x3, symptoms resolved. His vital signs were stable. The patient is a 75 year old M presented to the emergency room because of confusion and memory loss. He had no other symptoms. There was no symptoms of slurred speech, blurred vision, numbness, tingling, focal arm or leg weakness. This patient with history of transient global amnesia. CT scan brain showed no acute infarct or hemorrhage. His EKG revealed no evidence of acute segment changes or cardiac arrhythmias. He had no focal deficit on physical exam. After admission, symptoms resolved and patient remained alert and oriented x3. MRI brain done and showed no evidence of acute infarct or hemorrhage. MRA of the head was normal. MRA of the neck revealed moderate 50% right carotid stenosis and moderate 60% stenosis of the left carotid artery, patent vertebral arteries bilaterally. 2D echocardiogram revealed ejection fraction 65%, stage I diastolic dysfunction, moderately dilated right ventricle, bubble contrast study negative for right to left shunt and RVSP of 37 consistent with mild pulmonary hypertension. Acute stroke ruled out. Symptoms attributed to transient global amnesia. Patient's vital signs were stable. He was kept on aspirin and statins. Patient discharged home in a stable condition, instructed to restart taking aspirin 81 mg p.o. daily, continued on statins and other home medications without any changes, recommended referral to neurology as outpatient, follow-up with PCP in 1 week. - Physical Exam Vitals/I&O's: Vital Signs Temp Pulse Resp BP Pulse Ox 98.7 F 62 14 128/78 H 92 05/31/20 11:27 05/31/20 11:27 05/31/20 11:27 05/31/20 11:27 05/31/20 11:27 Oxygen Delivery Method Room Air Weight: 235 lb 10.786 oz Body Mass Index (BMI) 32.8 Finger Stick Blood Glucose 109 Intake and Output for Last 24 Hours 05/29/20 05/30/20 05/31/20 23:59 23:59 23:59 Intake Total 445 / 445 Balance 445 / 445 General: Alert, Oriented x3, Cooperative, No apparent distress HEENT: Atraumatic, PERRLA, EOMI, Normocephalic Oral: Moist Mucosa, No Gingival or Mucosal Lesions/ Ulcerations Neck: Supple, No JVD, Negative Carotid Bruits, Trachea Midline, Thyroid Normal Size and Texture Lungs: Clear to auscultation, Normal air movement, No rhonchi, No wheeze, No rales Cardiovascular: Regular rate, Regular Rhythm, Normal S1, Normal S2, PMI Normal Abdomen: Bowel Sounds Present, Soft, Non Tender, Non-Distended, No Hepato- splenomegaly Extremities: No clubbing, No cyanosis, No edema Skin: No rashes, No breakdown Lymphatic: No Cervical, Supraclavicular, or Inguinal Adenopathy Neurological: Cranial nerves II-XII grossly intact, Motor Exam 5/5 strength throughout Psych/Mental Status: Normal Affect, Appropriate Laboratory Results 05/31/20 05:15: WBC 6.1, RBC 4.41 L, Hgb 14.6, Hct 44.1, MCV 100.0 H, MCH 33.1 H , MCHC 33.1, RDW Std Deviation 45.9 H, RDW Coeff of Nilo 12.3, Plt Count 213, MPV 9.1, Immature Gran % (Auto) 0.200, Neut % (Auto) 42.2 L, Lymph % (Auto) 42.6 H, Saunders % (Auto) 8.4, Eos % (Auto) 5.9 H, Baso % (Auto) 0.7, Absolute Neuts (auto) 2.6, Absolute Lymphs (auto) 2.58, Nucleated RBC % 0 05/31/20 05:15: PT 11.7, INR 0.9, APTT 28.4 05/31/20 05:15: Sodium 139, Potassium 3.6, Chloride 102, Carbon Dioxide 28.0, Anion Gap 9, BUN 19 H, Creatinine 0.88, Estim Creat Clear Calc 79.63, Est GFR (MDRD) Af Amer 109, Est GFR (MDRD) Non-Af 90, BUN/Creatinine Ratio 21.5 H, Glucose 113 H, Calcium 8.9, Total Bilirubin 0.40, Direct Bilirubin 0.10, AST 22, ALT 33, Alkaline Phosphatase 92, Troponin I < 0.015, Total Protein 7.6, Albumin 3.8, Globulin 3.8 05/31/20 05:15: Total Bilirubin 0.40, Direct Bilirubin 0.13, AST 21, ALT 31, Alkaline Phosphatase 93, Total Protein 7.5, Albumin 3.8, Globulin 3.7, TSH 4.47 H 05/31/20 05:15: Hemoglobin A1c 5.0 05/31/20 05:18: POC Glucose 109 Current Medications Acetaminophen (Tylenol) 650 mg PO Q4H PRN PRN PRN Reason: Headache/Temp>99F Al Hydroxide/Mg Hydroxide (Mylanta Ii) 30 ml PO Q6H PRN PRN PRN Reason: Gastric Burning Aspirin (Aspirin, Baby) 81 mg PO DAILY@0800 [facility] Atorvastatin Calcium (Lipitor) 10 mg PO QHS [facility] Heparin Sodium (Porcine) (Heparin Na) 5,000 unit SC Q12 [facility] Last Admin: 05/31/20 11:43 Dose: 5,000 unit Documented by: Hydrochlorothiazide (Hctz) 25 mg PO DAILY [facility] Last Admin: 05/31/20 11:43 Dose: 25 mg Documented by: Sodium Chloride () 250 mls @ 15 mls/hr IV .[id number] PRN PRN Reason: Saline Flush Sodium Chloride () 250 mls @ 15 mls/hr IV .[id number] PRN PRN Reason: Additional IVPB Infusion Lisinopril (Zestril) 20 mg PO DAILY [facility] Last Admin: 05/31/20 11:43 Dose: 20 mg Documented by: Multivitamins/Minerals (Multivitamin With Minerals (Bkc)) 1 tablet PO DAILY@0 800 [facility] Ondansetron HCl (Zofran) 4 mg IV Q8H PRN PRN PRN Reason: NAUSEA/VOMITING Sodium Chloride () 10 - 40 ml IV UD PRN PRN Reason: SALINE FLUSH Discharge Activity: Return to Normal Activity Weight Bearing Status: Full weight bearing Call your doctor if you observe: Shortness of breath, Dizziness, Fainting spells, Chest pain, Increased palpitations (irregular heartbeat), Uncontrolled pain Home Medications: Medications to take at Discharge Aspirin [Aspirin, Baby] 81 mg PO DAILY@0800 02/13/17 Lisinopril/Hydrochlorothiazide [Zestoretic 20/25 Tablet] 1 tablet PO DAILY 02/13/17 Multivitamins,Ther W-Minerals [Multivitamin With Minerals (BKC)] 1 tablet PO DAILY 02/13/17 Acetaminophen [Tylenol Tablet] 650 mg PO Q4H PRN PRN #0 tablet 02/14/17 Lovastatin [Mevacor] 40 mg PO DAILY 11/06/18 Primary Care Physician: Demian Quintanilla MD [Primary Care Provider] - Please follow up with your Primary Care Physician in: 1 week. Disposition: Home Minutes spent on discharge:: 28 Patient Condition:: Stable Medical Necessity - Tobacco Use Smoking Status: Never smoker Tobacco Use: Non-smoker Meaningful Use Info Meaningful Use Diagnoses (Choose all that apply): None applicable OBSV E&M: 15845 Observation care discharge
--- NOTE | 2020-05-31 15:03 | CASEMGMT ---
SW completed a PHQ 9 with patient as he had a TIA per physicians note. Patient scored a 0 which indicates no Depression. Lucia LOUIS MSW
== END 2020-05-31 15:55 | disposition home or self-care (01) | DRG 72 ==
LOC: ED 05:53 → PCU 06:16
PROVIDERS: Admitting Provider Internal Medicine; Emergency Provider Emergency Medicine; PCP Family Medicine; Visit Provider Hospitalist
DX: G45.4 Transient global amnesia (principal); I10 Essential (primary) hypertension; E78.5 Hyperlipidemia, unspecified; R29.700 NIHSS score 0; Z86.73 Personal history of transient ischemic attack (TIA), and cerebral infarction without residual deficits; Z79.899 Other long term (current) drug therapy; I27.20 Pulmonary hypertension, unspecified
CPT/HCPCS: 70450; 70544; 70547; 70551; 80048; 80076; 82962; 83036; 84443; 84484; 85025; 85610; 85730; 93005; 93306; 97802; 99285; A4216

== ENCOUNTER → 2020-06-05 | Outpatient (CLI) | payer MEDICARE, SELFPAY ==
[2020-05-31 07:24] VITALS: BMI 32.8
[2020-06-05 13:44] LABS: Cholesterol 188 mg/dL (200); High Density Lipoprotein 72 mg/dL; PSA,Total- Diagnostic 0.77 ng/mL (0.0-4.0); Triglycerides 80 mg/dL; Very Low Density Lipoprotein 16 mg/dL (5-40)
== END | disposition home or self-care (01) ==
LOC: LABSPEC 13:09
PROVIDERS: PCP Family Medicine; Referring Provider Family Medicine; Visit Provider Family Medicine
DX: E78.5 Hyperlipidemia, unspecified (principal); Z12.5 Encounter for screening for malignant neoplasm of prostate
CPT/HCPCS: 80061; 84153

== ENCOUNTER → 2021-01-08 | Outpatient (CLI) | payer MEDICARE, SELFPAY ==
[2020-05-31 07:24] VITALS: BMI 32.8
[2021-01-08 13:26] LABS: Red Blood Cells-Urine 0 SEEN /hpf (0-5); Squamous Epithelial Cells - UA 0 SEEN /hpf (0-5); White Blood Cells 0 SEEN /hpf (0-5)
[2021-01-08 13:31] LABS: Absolute Neutrophil Count 2.8 X10^3/uL (2.0-7.7); Basophil# 0.05 X10^3/uL; Basophil% 0.9 % (0-1); Eosinophils% 5.2 % (0-5); Hematocrit 44.1 % (40-54); Hemoglobin 14.5 g/dL (13.0-16.5); Mean Corp Hgb Conc 32.9 g/dL (32-36); Mean Corpuscular Hgb 33.4 pg (27.0-32.0); Mean Corpuscular Volume 101.6 fL (80-94); Mean Platelet Vol. 9.6 fl (6.2-12.0); Monocyte# 0.53 X10^3/uL; Monocyte% 9.3 % (0-10); NRBC Flagged by Analyzer 0 % (0-5); Neutrophil # 2.83 X10^3/uL (2.7-7.7); Neutrophil % 49.4 % (47-70); Platelet Count 235 K/mm3 (150-450); RBC Distribution Width SD 45.7 fl (35.1-43.9); Red Blood Count 4.34 M/mm3 (4.6-6.2); White Blood Count 5.7 K/mm3 (4.4-11.0)
[2021-01-08 13:32] LABS: Color, Urine Yellow (Yellow); Glucose, Dipstick Normal (Normal); Ketone-Dipstick Negative (Negative); Leukocyte Esterase-Dipstick Negative /ul (Negative); Nitrite-Dipstick Negative (Negative); Occult Blood-Urine Negative /ul (Negative); Protein-Dipstick Negative (Negative); Urine Bilirubin Dipstick Negative (Negative); Urine Clarity Clear (Clear); Urine Urobilinogen 1 mg/dl (Normal)
[2021-01-08 13:45] LABS: ALB/GLOB Ratio 1.1 RATIO (0.9-2.4); AST(SGOT) 28 U/L (15-37); Alanine Aminotransfer ALT/SGPT 40 U/L (16-61); Albumin, Serum 3.7 g/dL (3.2-5.0); Alkaline Phosphatase 88 U/L (45-117); Anion Gap 5 (5-15); BUN 22 mg/dL (7-18); BUN/Creat Ratio 23.9 RATIO (10-20); Chloride 106 mmol/L (98-107); Cholesterol 199 mg/dL (200); Creatinine, Serum 0.92 mg/dL (0.70-1.30); EST Glomerular Filtration Rate 85 mL/min (>60); Est Glom Filt Rate - Afr Amer 103 mL/min (>60); Globulin 3.4 g/dL (2.2-4.2); Glucose 93 mg/dL (74-106); High Density Lipoprotein 71 mg/dL; PSA,Total - Annual Screen 0.78 ng/mL (0.00-4.00); Protein, Total 7.1 g/dL (6.4-8.2); Sodium Level 141 mmol/L (136-145); Triglycerides 94 mg/dL; Very Low Density Lipoprotein 19 mg/dL (5-40)
[2021-01-08 13:48] LABS: Bacteria RARE /hpf (None Seen); Mucous, Urine 2+ /hpf (<or=2+)
== END | disposition home or self-care (01) ==
LOC: LABSPEC 12:40
PROVIDERS: PCP Family Medicine; Referring Provider Nurse Practitioner Family; Visit Provider Nurse Practitioner Family
DX: G45.4 Transient global amnesia (principal); E78.2 Mixed hyperlipidemia; I10 Essential (primary) hypertension; Z12.5 Encounter for screening for malignant neoplasm of prostate
CPT/HCPCS: 80053; 80061; 81001; 84153; 85025; G0103

== ENCOUNTER → 2021-05-29 | Outpatient (CLI) | payer MEDICARE, SELFPAY ==
[2020-05-31 07:24] VITALS: BMI 32.8
[2021-05-29 11:20] LABS: AST(SGOT) 29 U/L (15-37); Alanine Aminotransfer ALT/SGPT 39 U/L (16-61); Albumin, Serum 3.5 g/dL (3.2-5.0); Alkaline Phosphatase 69 U/L (45-117); Anion Gap 2 (5-15); BUN 23 mg/dL (7-18); BUN/Creat Ratio 26.5 RATIO (10-20); Calcium,Total 8.6 mg/dL (8.5-10.1); Chloride 106 mmol/L (98-107); Cholesterol 177 mg/dL (200); Creatinine, Serum 0.87 mg/dL (0.70-1.30); EST Glomerular Filtration Rate 91 mL/min (>60); Est Glom Filt Rate - Afr Amer 110 mL/min (>60); Globulin 3.5 g/dL (2.2-4.2); Glucose 83 mg/dL (74-106); High Density Lipoprotein 74 mg/dL; Potassium 3.8 mmol/L (3.5-5.1); Sodium Level 137 mmol/L (136-145); Triglycerides 81 mg/dL; Very Low Density Lipoprotein 16 mg/dL (5-40)
== END | disposition home or self-care (01) ==
LOC: LABSPEC 10:50
PROVIDERS: PCP Family Medicine; Visit Provider Family Medicine
DX: E78.2 Mixed hyperlipidemia (principal); I10 Essential (primary) hypertension
CPT/HCPCS: 80053; 80061

== ENCOUNTER → 2022-04-23 | Outpatient (CLI) | payer MEDICARE, SELFPAY ==
--- NOTE | 2022-04-23 08:15 | CT_ITS ---
STUDY: CT OF THE LEFT KNEE WITHOUT CONTRAST REASON FOR EXAM: Male, 77 years old. Pain. Evaluate for osteoarthrosis. RADIATION DOSAGE (If Supplied By Facility): CTDIvol = ( 18.76 ) mGy, DLP = ( 1271.62 ) mGycm. Individualized dose optimization techniques were used for this CT.? TECHNIQUE: Contiguous axial images of the left knee were obtained without contrast. Coronal and sagittal reconstruction images in bone and soft tissue algorithm images were provided for interpretation. COMPARISON: None. FINDINGS: Generalized osteopenia. Diffuse mild muscle atrophy. Normal subcutaneous soft tissues. Calcification of the distal femoral metaphysis laterally with no aggressive features. Lesion may represent an unusual bone island or posttraumatic changes. Severe tricompartmental arthrosis with osteophytes, most marked in the patellofemoral compartment. Suprapatellar joint effusion. Vascular calcification. CT/Extremity Lower without Contra IMPRESSION: Osteopenia with lesion of the distal femur most likely representing unusual bone island posttraumatic changes. No aggressive features associated with this lesion. Marked tricompartmental arthrosis with osteophytes, most manifest in the patellofemoral compartment. Diffuse muscle atrophy. Suprapatellar joint effusion. Electronically Signed: Avelino Anthony MD at 9:27 EDT ,
== END | disposition home or self-care (01) ==
LOC: CT 08:13
PROVIDERS: PCP Family Medicine; Referring Provider Orthopaedic Surgery; Visit Provider Orthopaedic Surgery
DX: M21.162 Varus deformity, not elsewhere classified, left knee (principal); M17.12 Unilateral primary osteoarthritis, left knee
CPT/HCPCS: 73700

== ENCOUNTER 2022-05-06 05:22 | Day surgery (SDC) | payer MEDICARE, SELFPAY ==
--- NOTE | 2022-04-25 10:39 | EKG12_ITS ---
Test Reason : PREOP Blood Pressure : / mmHG Vent. Rate : 076 BPM Atrial Rate : 076 BPM P-R Int : 198 ms QRS Dur : 092 ms QT Int : 358 ms P-R-T Axes : 044 013 023 degrees QTc Int : 402 ms Sinus rhythm with occasional Premature ventricular complexes Otherwise normal ECG Confirmed by SAEID MCDANIELS, ABISAI ([id number]), research editor ELI HOWELL ([id number]) on 04/26/2022 1:51:11 PM Referred By: TRAMAINE Confirmed By:THONY BREAUX MD
[2022-04-25 12:01] LABS: Absolute Lymphocyte Count 1.86 X10^3/uL (0.83-4.51); Absolute Neutrophil Count 3.2 X10^3/uL (2.0-7.7); Basophil# 0.05 X10^3/uL; Basophil% 0.9 % (0-1); Eosinophil# 0.15 X10^3/uL; Eosinophils% 2.6 % (0-5); Hematocrit 42.4 % (40-54); Hemoglobin 14.4 g/dL (13.0-16.5); Lymphocyte # 1.86 X10^3/ul (0.83-4.51); Lymphocyte % 31.7 % (19-41); Mean Corpuscular Hgb 33.4 pg (27.0-32.0); Mean Corpuscular Volume 98.4 fL (80-94); Mean Platelet Vol. 9.2 fl (6.2-12.0); Monocyte# 0.56 X10^3/uL; Monocyte% 9.5 % (0-10); NRBC Flagged by Analyzer 0 % (0-5); Neutrophil # 3.18 X10^3/uL (2.7-7.7); Neutrophil % 54.1 % (47-70); Platelet Count 226 K/mm3 (150-450); RBC Distribution Width CV 12.1 % (11.6-14.6); RBC Distribution Width SD 44.3 fl (35.1-43.9); Red Blood Count 4.31 M/mm3 (4.6-6.2); White Blood Count 5.9 K/mm3 (4.4-11.0)
[2022-04-25 12:28] LABS: Albumin, Serum 3.8 g/dL (3.2-5.0)
[2022-04-25 12:30] LABS: Anion Gap 4 (5-15); BUN 28 mg/dL (7-18); BUN/Creat Ratio 36.9 RATIO (10-20); Calcium,Total 9.3 mg/dL (8.5-10.1); Chloride 105 mmol/L (98-107); Creatinine, Serum 0.76 mg/dL (0.70-1.30); EST Glomerular Filtration Rate 107 mL/min (>60); Est Glom Filt Rate - Afr Amer 129 mL/min (>60); Glucose 102 mg/dL (74-106); Magnesium 2.1 mg/dL (1.6-2.6); Potassium 4.3 mmol/L (3.5-5.1); Sodium Level 140 mmol/L (136-145)
[2022-04-25 14:04] LABS: Hemoglobin A1c 5.3 % (3.8-5.6)
[2022-05-06] VITALS (12 sets, daily range): BP systolic 106–162; BP diastolic 37–87; PULSE 69–76; RESP 16–18; TEMP 36–36.8; O2SAT 95–99; BMI 34.9
[2022-05-06] MEDS: Lactated Ringers 1,000 ML 125 ML IV ×2 (06:17→10:19)
[2022-05-06] MEDS: Gabapentin 600 MG Tablet PO (06:18)
[2022-05-06] MEDS: Acetaminophen 500 MG Tablet 1000 MG PO (06:18)
[2022-05-06 07:26] LABS: Bedside Glucose 96 mg/dL (74-106)
[2022-05-06] MEDS: Cefazolin 2 GM in 0.9% Normal Saline 100 ML IV (07:29)
--- NOTE | 2022-05-06 07:30 | FEM_PTH ---
PATIENT: SERENA RHODES LOC: [facility] [place] U#:[id number] AGE/SX: 77/M ROOM: RE05/06/[address]: Dr. Arnoldo Erazo DO : 1945 BED: DIS: 05/06/2022 SPEC #: [id number] RECD: 05/06/22 11:46 STATUS: JUANITA REMarsha #: [id number] ANUSHKA: 05/06/22 07:[address]: Arnoldo Erazo DEPT: SURGICAL PATHOLOGY RECD BY: Ailyn Horn ENTERED: 05/06/22 12:49 SP TYPE: FEM HEAD OTHR DR: Dr. Demian Quintanilla MD Tissues: Femoral region, NOS Procedures: Decalcification bone/plaque Surgery Specimen Level IV HEADER OPERATION: ERAS, total knee replacement robotic arm assist PRE-OP DIAGNOSIS: Primary osteoarthritis left knee TISSUE SUBMITTED: Left femoral and tibial bone MICROSCOPIC DIAGNOSIS Left femoral and tibial bone, total knee replacement/resection: Pieces of bone with degenerative osteoarthritic changes. MARCIA:[email or web address] 05/09/2022 MICROSCOPIC DESCRIPTION Slides are reviewed. GROSS DESCRIPTION Received is one container designated left femoral and tibial bone. The specimen consists of multiple fragments of perez-yellow bone measuring in aggregate 10 x 11 x 4 cm. No soft tissue is identified. A number of bony fragments contain articular surfaces consistent with tibial plateau and femoral condyle and displaying prominent osteophyte formation, eburnation, and bone erosion. Leather Polisher sections are submitted in one cassette after decalcification. / MARCIA:magy 05/06/2022 TC:5 CPT: 51467, 94038
[2022-05-06] MEDS: TXA 1000mg in NS100 100ml (IVPB at Incision) 660 MG IV (07:45)
[2022-05-06] MEDS: TXA 1000mg in NS100 100ml (IVPB at Closure) 660 MG IV (09:02)
--- NOTE | 2022-05-06 09:10 | PCM.OPRPT ---
Report of Operation Date of Procedure: 05/06/22 Pre-Operative Diagnosis: OA Left knee Post-Operative Diagnosis: same Surgery/Procedure Performed:: Left TKR Description of Surgical Findings:: Report of Operation Date of Procedure: 05/06/2022 Preoperative Diagnosis: [Left ] knee primary osteoarthritis Postoperative Diagnosis: [Left ] knee primary osteoarthritis Operation: Robotic Assisted Knee Total Arthroplasty, [left ] knee Surgeon: Dr Arnoldo Erazo DO Furniture Upholsterer: Avelino Campuzano PA-C Anesthesia: spinal Anesthesiologist: Clifford Ott M.D. Findings: Stable knee with good patella tracking Specimen(s): Bony cuts Complications: No intraoperative complications Estimated Blood Loss: 20 cc IV Fluids: 1000 cc crystalloid Implants Used: 1. [place] [employer] press-fit CR size 5 femur 2. [place] [employer] size 6 tibia 3. 11 mm CS polyethylene 4. 35 mm patella Brief History Operative Indications: [ (77 y/o male) ] with history of [ left ] knee osteoarthrosis with radiographic findings with loss of joint space, osteophyte formation and subchondral sclerosis. Failed conservative measures as mentioned in the H&P. Discussion of total knee arthroplasty as well as risk and benefits were discussed with the patient including but not limited to blood loss, DVTs, PEs, neurovascular damage, general risk of anesthesia including loss of life, and stiffness or instability were also discussed with the patient. Patient demonstrated understanding and was able to sign informed consent. Procedure: On the date of procedure, patient's [left ] lower extremity was marked in the preoperative area. The patient was then taken back to the operating room where that patient was placed on the table in the supine position. All bony prominences were identified and well-padded. Anesthesia assumed control of the C-spine and airway throughout the remainder of the procedure. A tourniquet was placed on the [left ] upper thigh and the leg was prepped in a sterile fashion. The surgeon then scrubbed at this time. Upon reentering the room, the [left ] lower extremity was draped in a standard orthopedic fashion. A timeout was then called and everyone agreed upon the side, the site, the procedure to be performed, patient's identity and antibiotics given. Esmarch bandage was used to exsanguinate the extremity and the tourniquet was placed up to 250 mmHg with the knee in flexion. A midline skin incision was made and a sharp dissection was taken down through skin, subcutaneous tissue and fat. The standard medial parapatellar incision was made and the patella was subluxed laterally. An appropriate deep MCL release was done and the fat pad was resected. Our attention was then directed to the patella. The patella was everted and a flat resection was made. The knee was then flexed up and 2 femoral pins were placed inside the incision and 2 tibial pins were placed outside the incision in the medial tibia bicortically. Once this was completed, the 2 checkpoints in the femur and tibia were placed. Knee was then flexed up and the bony landmarks were registered. Once the was completed, the knee taken through range of motion and manually stressed allowing us to plan for an appropriate tibial cut. The robotic arm was brought into the field sterilely and checkpoint and saw were registered. Based on the patient's deformity, the tibial cut was made in [2 degrees varus ]. At this time, the tensioner was then placed in the joint and ligament tension was checked at 90 degrees and full extension. Based on the patient's ligamentous tension, appropriate adjustments were made to the operative plan and ligament releases were done. Once we were happy with our operative plan with balanced flexion and extension gaps, our attention was directed to the femur. The robot was brought into the field sterilely and registered. Posterior condylar cuts, anterior chamfer cuts and anterior cuts were appropriately made for a [size 5 ] femur. When these were completed, the saws were switched out in the distal femoral and posterior chamfer cuts were made. Protecting the soft tissue throughout this time. A [size 6 ] base plate was selected. The knee was flexed to 90 degrees and soft tissues and posterior osteophytes were removed from the joint. 40 cc of the periarticular injection was injected into the posterior medial corner of the joint. The appropriate trials were then placed on the femur and tibia. A trial polyethylene was trialed to ensure proper balancing and stability of the knee. The appropriate tibial internal rotation was then marked with a bovie. Our attention was then directed to the patella. The lug holes were drilled and the patella trial was placed. Patellar tracking was checked and deemed appropriate. Once we were happy, lug holes were drilled for the femur and trial components were removed. The tibia was subluxed and pinned into place and the keel was punched and drilled appropriately. Final components were verified and opened. The wound was copiously irrigated with normal saline. The components were impacted into place with the tibia, femur and finally the patella. The trial poly component was placed and the knee was placed in full extension. The tracking, alignment and balance were verified and a [11 mm CS ] polyethylene component was placed. Once the final components were placed an Irrisept lavage was performed and the wound was copiously irrigated with normal saline solution and the periarticular injection was given. the wound was closed in a layer-esposito fashion using #1 vicryl interrupted sutures for the arthrotomy, 2-0 interrupted vicryl suture for the subcuticular layer and anh for final skin closure. A sterile compressive dressing was then placed. The patient was then awakened from anesthesia, transferred to the [place] and transferred to the PACU for recovery. My physician corporate administrative assistant was a vital part of this case. He was important in appropriate retraction during the case, and protection of soft tissues during bony cuts. His intimate knowledge of the case and my steps aided in safe and expedient completion of the procedure as well as appropriate position of the leg during the case. He was also vital in assisting with closure under my direct supervision. Due to the complexity of this case, robotic arm was used to assist in the surgery to improve accuracy and clinical outcomes. Post-op Plan: DVT ppx; ASA 81 mg BID, thigh high compression stockings Follow up: in office in 2 weeks for wound check PT: to start POD #0 at hospital, outpatient PT should be arranged. Preoperative antibiotic: Ancef 2 grams IV Arnoldo Erazo DO Surgeon: Arnoldo Erazo catalyst impregnator: Avelino Campuzano Type of Anesthesia: Spinal Anesthesiologist: Ubaldo Ott Estimated Blood Loss (mL): 20 cc Fluids Replaced: 1000 cc crystalloid Admit VTE Documentation VTE Present on Admission: No VTE Mechan Device Prophylaxis: SCD's and Thigh High RADHA Hose VTE Pharm Prophylaxis ordered?: Yes
--- NOTE | 2022-05-06 09:50 | RAD_ITS ---
STUDY: X-RAY - LEFT KNEE REASON FOR EXAM: Male, 77 years old. Post op TKR -- in PACU TECHNIQUE: 2 view(s) of the knee. COMPARISON: None. FINDINGS: Normal visualized distal femur. Normal visualized proximal tibia and fibula. Normal proximal tibiofibular articulation. The patient is status post total knee replacement. There is good alignment. Postoperative soft tissue changes. RAD/Knee 1 or 2 Views IMPRESSION: Status post left total knee replacement. There is good alignment. Postoperative soft tissue changes. Electronically Signed: Mikey Garnica MD at 14:17 EDT ,
--- NOTE | 2022-05-06 12:20 | SUR.PHASEII ---
MILD LEFT KNEE DISCOMFORT WITH GROSS MOVEMENT ONLY. DENIES NEED FOR PAIN MEDS. ABLE TO HOLD EACH LEG OFF OF BED FOR 10 SECONDS. NOTIFIED PT/OT PATIENT READY FOR EVALUATION AND TREATMENT.
== END 2022-05-06 15:30 | disposition home or self-care (01) ==
LOC: SDC 05:25 → AC 05:27
PROVIDERS: Anesthesiology; PCP Family Medicine; Referring Provider Orthopaedic Surgery; Visit Provider Orthopaedic Surgery
PROC: 0SRD0JZ Replacement of Left Knee Joint with Synthetic Substitute, Open Approach (ICD-10-PCS; CPT 27447; principal; 2022-05-06 07:15)
DX: M17.12 Unilateral primary osteoarthritis, left knee (principal); I10 Essential (primary) hypertension; E78.00 Pure hypercholesterolemia, unspecified; Z79.899 Other long term (current) drug therapy; Z79.82 Long term (current) use of aspirin
CPT/HCPCS: 27447; 01402; S2900; 36415; 73560; 80048; 82040; 82962; 83036; 83735; 85025; 87077; 87081; 88305; 88307; 88311; 93005; 97162; C1776; J7120; J2405; J3475